=== PATIENT | female | born 1965 | race Caucasian/White ===

== ENCOUNTER → 2016-12-02 | Outpatient (CLI) | payer BC ==
[~2016-12-02] MED LIST: ATOR10TA88 PO; CZR25 PO; LEVO75TA5 PO; LOSA50TA6 PO; LPR25 PO; MULT-506 PO; OXYC-57 PO; SERT50TA PO
--- NOTE | 2016-12-02 12:46 | MAMMOGRAPHY REPORT ---
BILATERAL DIGITAL SCREENING MAMMOGRAM TOMOSYNTHESIS WITH CAD: 12/02/2016 CLINICAL HISTORY: Routine screening. Patient has no complaints. TECHNIQUE: Breast tomosynthesis in addition to standard 2D mammography was performed. Current study was also evaluated with a Computer Aided Detection (CAD) system. COMPARISON: Comparison is made to exams dated: 11/29/2015 mammogram, 11/27/2014 mammogram, 05/29/2013 mammogram, 11/23/2012 mammogram, 11/23/2013 mammogram, and 11/23/2012 ultrasound - [facility]. BREAST COMPOSITION: The tissue of both breasts is heterogeneously dense, which may obscure small ma sses. FINDINGS: No suspicious masses, calcifications, or areas of architectural distortion are noted in e ither breast. There has been no significant interval change compared to prior exams. IMPRESSION: ACR BI-RADS CATEGORY 1: NEGATIVE There is no mammographic evidence of malignancy. A 1 year screening mammogram is recommended. The p atient will receive written notification of the results. Approximately 10% of breast cancers are not detected with mammography. A negative mammographic repor t should not delay biopsy if a clinically suggestive mass is present. Linda Dinero M.D. ah/:12/02/2016 07:53:00 Pension Consultant: Stephy Newman, [facility] letter sent: Normal 1/2 BI-RADS Code: ACR BI-RADS Category 1: Negative
== END | disposition home or self-care (01) ==
LOC: C.MAMM 07:21
PROVIDERS: ATTEND Family Medicine
DX: Z12.31 Encounter for screening mammogram for malignant neoplasm of breast (principal)

== ENCOUNTER 2017-02-08 22:33 | Observation (INO) | payer BC ==
[~2017-02-08] VITALS: Ht 170.2 cm; Wt 120.9 kg
[~2017-02-08 22:33] MED LIST changes: -ATOR10TA88 PO; -CZR25 PO; -LEVO75TA5 PO; -LOSA50TA6 PO; -LPR25 PO
[2017-02-08 23:03] LABS: BASO % 0.3 %; BASO ABS # 0.02 K/uL (0-0.2); COMPLETE YES; EOS % 1.2 %; HEMATOCRIT 37.8 % (37-47); IG% 0.3 %; LYMPH % 41.8 %; LYMPH ABS # 2.51 K/uL (1.2-3.4); MEAN CELL VOLUME 92.6 fL (80-100); MEAN CORPUSCULAR HEMOGLOBIN 32.4 pg (25-34); MEAN CORPUSCULAR HGB CONC 34.9 g/dl (32-36); MEAN PLATELET VOLUME 9.4 fL (7.4-10.4); MONO % 5.5 %; NEUT % 50.9 %; PLATELET COUNT 168 K/uL (130-400); RED BLOOD COUNT 4.08 M/uL (4.2-5.4)
[2017-02-08] MEDS ORDERED: LORAZEPAM 2 MG/ML 1 ML VIAL IV STA (23:16)
[2017-02-08 23:30] LABS: ALT/SGPT 26 U/L (12-78); AST/SGOT 19 U/L (15-37); BLOOD UREA NITROGEN 20 mg/dl (7-18); BUN/CREATININE RATIO 11.7 (10-20); CALCIUM 9.1 mg/dl (8.5-10.1); CARBON DIOXIDE 29 mmol/L (21-32); CHLORIDE 104 mmol/L (98-107); GLUCOSE 98 mg/dl (70-99); MAGNESIUM 1.9 mg/dl (1.8-2.4); POTASSIUM 3.6 mmol/L (3.5-5.1); SODIUM 141 mmol/L (136-145)
[2017-02-08] MEDS ORDERED: MULT-506 PO (23:33)
[2017-02-08] MEDS ORDERED: ATOR10TA82 PO (23:33)
[2017-02-08] MEDS ORDERED: LEVO75TA5 PO (23:33)
[2017-02-08] MEDS ORDERED: LOSA50TA6 PO (23:33)
[2017-02-08 23:41] LABS: ALKALINE PHOSPHATASE 91 U/L (45-117)
[2017-02-08] MEDS ORDERED: SODIUM CHLORIDE 0.9% 500ML 500 ML IV STA (23:41)
--- NOTE | 2017-02-09 00:06 | History and Physical ---
History & Physical Date & Time of Service: Feb 09, 2017 at 00:04 Chief Complaint: Jaw/Neck Pain,Rt Arm Pain W/Numbness Primary Care Physician: Jean Narayan M.D. History of Present Illness Source: patient The patient is a 51 year old female who presents to the Emergency Room with complaints of nausea, shortness of breath, upper back, neck, bilateral shoulder and right arm discomfort with tingling for the past few hours. Patient reports left sided chest pain, appears to be anxious , C/O SOB , chest pain pain worse with laying flat. Similar experience on Wednesday, lasting 2 hours with resolution. Negative diaphoresis. She describes the pain as numbness and tingling, Patient has a family history of heart disease with a brother had a heart attack in his 30s and her mother and her diffuse. Patient donated a kidney few years ago. She had an cardiac catheterization in 2008 prior to donating her kidney that was normal per patient. Patient is obese. No complain of RAMIREZ . Patient denies fever , cough, congestion, leg pain or swelling, no complain of abdominal pain, no recent travel, denies tobacco use. Family History Cancer Diabetes mellitus FH: cholecystectomy Gallbladder disease Heart disease Social History Smoking Status: Never Smoker Marital Status: Occupational Status: employed Multi-Drug Resistant Organisms History of MDRO: No Allergies Uncoded Allergies: HORMONE REPLACEMENT (Allergy, Intermediate, HIVES AND BLISTERS, 04/09/14) Home Medications Scheduled Atorvastatin (Lipitor), 10 MG PO DAILY Levothyroxine Sodium (Levothyroxine Sodium), 75 MCG PO DAILY Losartan Potassium (Losartan Potassium), 1 TAB PO DAILY Metoprolol Tartrate (Lopressor), 25 MG PO BID Multivitamin (Multivitamin), 1 TAB PO DAILY Review of Systems Constitutional: + fatigue, + weakness Respiratory: + dyspnea on exertion Cardiovascular: + chest pain Abdomen: No GI bleeding, No constipation, No diarrhea, No nausea, No pain, No problem reported, No vomiting Musculoskeletal: No calf pain, No joint pain, No muscle pain, No problem reported, No swelling Genitourinary - Female: No dysmenorrhea, No dysuria, No hematuria, No menorrhagia, No metrorrhagia, No , No problem reported, No rash, No urinary frequency, No urinary incontinence, No urinary retention, No urinary urgency, No vaginal bleeding, No vaginal discharge, No vaginal itching, No vulvodynia Endocrine: No excessive thirst, No excessive urination, No fatigue, No problem reported Physical Exam Vital Signs Date Time Temp Pulse Resp B/P Pulse Ox O2 Delivery O2 Flow Rate FiO2 02/08/17 23:24 90 20 150/92 97 Room Air 02/08/17 23:03 98 Room Air 02/08/17 22:53 Room Air 02/08/17 22:53 99 Room Air 02/08/17 22:43 104 02/08/17 22:34 36.7 105 20 192/84 100 Room Air General Appearance: no apparent distress Head: normocephalic, atraumatic Eyes: sclerae normal Respiratory/Chest: lungs clear, normal breath sounds Cardiovascular: regular rate, rhythm, no edema Abdomen/GI: normal bowel sounds, non tender, soft Extremities/Musculoskelatal: normal capillary refill, no pedal edema Neurologic/Psych: no motor/sensory deficits, alert, normal mood/affect, oriented x 3 Skin: normal color, warm/dry, no rash Lymphatic: no adenopathy Diagnostics Laboratory Results Results Past 24 Hours Test 02/08/17 22:45 02/08/17 22:51 Range/Units White Blood Count 6.00 4.8-10.8 K/uL Red Blood Count 4.08 4.2-5.4 M/uL Hemoglobin 13.2 12.0-16.0 g/dL Hematocrit 37.8 37-47 % Mean Corpuscular Volume 92.6 80-100 fL Mean Corpuscular Hemoglobin 32.4 25-34 pg Mean Corpuscular Hemoglobin Concent 34.9 32-36 g/dl Platelet Count 168 130-400 K/uL Mean Platelet Volume 9.4 7.4-10.4 fL Neutrophils (%) (Auto) 50.9 % Lymphocytes (%) (Auto) 41.8 % Monocytes (%) (Auto) 5.5 % Eosinophils (%) (Auto) 1.2 % Basophils (%) (Auto) 0.3 % Neutrophils # (Auto) 3.05 1.4-6.5 K/uL Lymphocytes # (Auto) 2.51 1.2-3.4 K/uL Monocytes # (Auto) 0.33 0.11-0.59 K/uL Eosinophils # (Auto) 0.07 0-0.5 K/uL Basophils # (Auto) 0.02 0-0.2 K/uL RDW Standard Deviation 46.8 36.4-46.3 fL RDW Coefficient of Variation 13.9 11.5-14.5 % Immature Granulocyte % (Auto) 0.3 % Immature Granulocyte # (Auto) 0.02 0.00-0.02 K/uL D-Dimer 590 0-500 ug/L FEU Sodium Level 141 136-145 mmol/L Potassium Level 3.6 3.5-5.1 mmol/L Chloride Level 104 98-107 mmol/L Carbon Dioxide Level 29 21-32 mmol/L Anion Gap 8.0 3-11 mmol/L Blood Urea Nitrogen 20 7-18 mg/dl Creatinine 1.70 0.60-1.20 mg/dl Est Creatinine Clear Calc Drug Dose 53.6 ml/min Estimated GFR () 40.1 Estimated GFR (Non- 34.6 BUN/Creatinine Ratio 11.7 10-20 Random Glucose 98 70-99 mg/dl Calcium Level 9.1 8.5-10.1 mg/dl Magnesium Level 1.9 1.8-2.4 mg/dl Total Bilirubin 0.3 0.2-1 mg/dl Direct Bilirubin < 0.1 0-0.2 mg/dl Aspartate Amino Transf (AST/SGOT) 19 15-37 U/L Alanine Aminotransferase (ALT/SGPT) 26 12-78 U/L Alkaline Phosphatase 91 45-117 U/L Troponin I < 0.015 0-0.045 ng/ml Total Protein 7.9 6.4-8.2 gm/dl Albumin 3.9 3.4-5.0 gm/dl Thyroid Stimulating Hormone (TSH) 7.780 0.300-4.500 uIu/ml Bedside Troponin I 0.000 0-0.045 ng/ml CXR normal EKG EKG -normal sinus HR 85 possible inferior infraction , age indeterminant Impression Assessment and Plan (1) Anginal chest pain at rest Assessment & Plan: presented with typical anginal symptom pain radiation to jaw and arm risk factor; family hx of CAD , HTN , Hyperlipidemia initial cardiac markers , EKG non ischemic admit to tele serial cardiac markers Resting ECHO ordered Cardiology consult requested NPO past midnight for possible stress test vs Cardiac intervention in AM - depending on pt's clinical status (2) Hypothyroidism Chronic Assessment & Plan: TSH elevated > 7 ordered for Free T3/T 4 level Levothyroxine dose will be increased to 100 mcg daily will need repeat TSH to be checked in 4-6 weeks (3) DUSTY (acute kidney injury) Assessment & Plan: SOLITARY KIDNEY baseline cr presented with Cr 1.7 follow PRP avoid contrast studies , unless life threatening condition /life saving procedure IVF NSS @ 80 ml /hr baseline Cr (4) Hyperlipidemia Chronic Assessment & Plan: Cont Lipitor ordered for fasting lipid panel to be checked (5) HTN (hypertension) Assessment & Plan: BP elevated 192/84 pt was very anxious Losartan on hold due to DUSTY stated on Lopressor 25 mg PO BID , ist dose to be given now monitor in Tele ECHO to assess hypertensive heart disease Cardiology consulted (6) Elevated d-dimer D-DIMER ELEVATED 590 with associated symptom of SOB , chest pain , RAMIREZ CT chest with contrast PE study could not be done due to DUSTY ordered for lower ext bilateral venous Doppler to R/O DVT ECHO to assess Rt heart strain Level of Care Telemetry Resuscitation Status FULL RESUSCITATION VTE Prophylaxis Risk Level: Moderate Given or contraindicated: Unfractionated heparin SQ Note In my clinical judgment this beneficiary meets acute admission criteria, established by [facility], that includes being hospitalized through two midnights. Additional Copies To Jean Narayan M.D. Problem Qualifiers (1) Hypothyroidism: Hypothyroidism type: unspecified Qualified Codes: E03.9 - Hypothyroidism, unspecified (2) Hyperlipidemia: Hyperlipidemia type: other hyperlipidemia Qualified Codes: E78.4 - Other hyperlipidemia (3) HTN (hypertension): Hypertension type: essential hypertension Qualified Codes: I10 - Essential ( primary) hypertension
--- NOTE | 2017-02-09 00:18 | EMERGENCY ROOM VISIT NOTE ---
History First contact with patient: 22:38 Chief Complaint: CARDIAC ASSESSMENT Stated Complaint: JAW/NECK PAIN,RT ARM PAIN W/NUMBNESS Nursing Triage Summary: Patient reports left sided chest pain, arrives anxious. ? SOB. Negative nausea/vomiting, pain worse iwth laying flat. Similar experience on Wednesday, lasting 2 hours with resolution. Negative diaphoresis. History of Present Illness The patient is a 51 year old female who presents to the Emergency Room with complaints of nausea, shortness of breath, upper back, neck, bilateral shoulder and right arm discomfort with tingling for the past few hours. She describes the pain as numbness and tingling, makes it better or worse. Patient has a family history of heart disease with a brother had a heart attack in his 30s and her mother and her diffuse. Patient donated a kidney few years ago. She had an cardiac catheterization in 2008 prior to donating her kidney that was normal per patient. Patient is obese. She does not get winded when she walks. No exertional chest pain. Patient denies chest pain, even, chills, cough, congestion, leg pain or swelling, abdominal pain, recent travel, tobacco use. Review of Systems See HPI for pertinent positives & negatives. A total of 10 systems reviewed and were otherwise negative. Past Medical/Surgical History Medical Problems: (1) DUSTY (acute kidney injury) (2) Hypothyroidism Hypertension, hyperlipidemia Family History Cancer Diabetes mellitus FH: cholecystectomy Gallbladder disease Heart disease Social History Smoking Status: Never Smoker Smokeless Tobacco Use: No Alcohol Use: none Drug Use: none Marital Status: Housing Status: lives with significant other Occupation Status: employed Current/Historical Medications Scheduled Atorvastatin (Lipitor), 10 MG PO DAILY Levothyroxine Sodium (Levothyroxine Sodium), 75 MCG PO DAILY Losartan Potassium (Cozaar), 50 MG PO DAILY Multivitamin (Multivitamin), 1 TAB PO DAILY Allergies Uncoded Allergies: HORMONE REPLACEMENT (Allergy, Intermediate, HIVES AND BLISTERS, 04/09/14) Physical Exam Vital Signs Date Time Temp Pulse Resp B/P Pulse Ox O2 Delivery O2 Flow Rate FiO2 02/08/17 23:24 90 20 150/92 97 Room Air 02/08/17 23:03 98 Room Air 02/08/17 22:53 Room Air 02/08/17 22:53 99 Room Air 02/08/17 22:43 104 02/08/17 22:34 36.7 105 20 192/84 100 Room Air Physical Exam VITALS: Vitals are noted on the nurse's note and reviewed by myself. Vital signs hypertensive. GENERAL: Pleasant female mildly anxious-appearing, in no acute distress, nondiaphoretic, well-developed well-nourished. SKIN: The skin was without rashes, erythema, edema, or bruising. There is no tenting of the skin. Capillary reflex less than 2 seconds. HEAD: Normocephalic atraumatic. EARS: External auditory canals clear, tympanic membranes pearly aragon without erythema or effusion bilaterally. EYES: Pupils equal round and reactive to light and accommodation. Conjunctivae without injection, sclerae without icterus. Extraocular movements intact. NOSE: Patent, turbinates without inflammation or discharge. MOUTH: Mucous membranes moist. Pharynx without erythema or exudate. Uvula midline. Airway patent. Tongue does not deviate. NECK: Supple without nuchal rigidity. No lymphadenopathy. No thyromegaly. Cervical spine is nontender. No JVD. HEART: Regular rate and rhythm without murmurs gallops or rubs. LUNGS: Clear to auscultation bilaterally without wheezes, rales or rhonchi. No dullness to percussion. No retractions or accessory muscle use. ABDOMEN: Positive bowel sounds x 4. Normal tympanic percussion. Soft, nontender, without masses or organomegaly. Martin sign negative. No guarding or rebound tenderness. MUSCULOSKELETAL: No muscle atrophy, erythema, or edema noted. NEURO: Patient was alert and oriented to person place and time. Normal sensation to light and sharp touch. No focal neurological deficits. Medical Decision & Procedures Laboratory Results 02/08/17 22:45 Red Blood Count 4.08, Mean Corpuscular Volume 92.6, Mean Corpuscular Hemoglobin 32.4, Mean Corpuscular Hemoglobin Concent 34.9, Mean Platelet Volume 9.4, Neutrophils (%) (Auto) 50.9, Lymphocytes (%) (Auto) 41.8, Monocytes (%) (Auto) 5.5, Eosinophils (%) (Auto) 1.2, Basophils (%) (Auto) 0.3, Neutrophils # (Auto) 3.05, Lymphocytes # (Auto) 2.51, Monocytes # (Auto) 0.33, Eosinophils # (Auto) 0.07, Basophils # (Auto) 0.02 02/08/17 22:45 Test 02/08/17 22:45 02/08/17 22:51 White Blood Count 6.00 K/uL (4.8-10.8) Red Blood Count 4.08 M/uL (4.2-5.4) Hemoglobin 13.2 g/dL (12.0-16.0) Hematocrit 37.8 % (37-47) Mean Corpuscular Volume 92.6 fL (80-100) Mean Corpuscular Hemoglobin 32.4 pg (25-34) Mean Corpuscular Hemoglobin Concent 34.9 g/dl (32-36) Platelet Count 168 K/uL (130-400) Mean Platelet Volume 9.4 fL (7.4-10.4) Neutrophils (%) (Auto) 50.9 % Lymphocytes (%) (Auto) 41.8 % Monocytes (%) (Auto) 5.5 % Eosinophils (%) (Auto) 1.2 % Basophils (%) (Auto) 0.3 % Neutrophils # (Auto) 3.05 K/uL (1.4-6.5) Lymphocytes # (Auto) 2.51 K/uL (1.2-3.4) Monocytes # (Auto) 0.33 K/uL (0.11-0.59) Eosinophils # (Auto) 0.07 K/uL (0-0.5) Basophils # (Auto) 0.02 K/uL (0-0.2) RDW Standard Deviation 46.8 fL (36.4-46.3) RDW Coefficient of Variation 13.9 % (11.5-14.5) Immature Granulocyte % (Auto) 0.3 % Immature Granulocyte # (Auto) 0.02 K/uL (0.00-0.02) D-Dimer 590 ug/L FEU (0-500) Anion Gap 8.0 mmol/L (3-11) Est Creatinine Clear Calc Drug Dose 53.6 ml/min Estimated GFR () 40.1 Estimated GFR (Non- 34.6 BUN/Creatinine Ratio 11.7 (10-20) Calcium Level 9.1 mg/dl (8.5-10.1) Magnesium Level 1.9 mg/dl (1.8-2.4) Total Bilirubin 0.3 mg/dl (0.2-1) Direct Bilirubin < 0.1 mg/dl (0-0.2) Aspartate Amino Transf (AST/SGOT) 19 U/L (15-37) Alanine Aminotransferase (ALT/SGPT) 26 U/L (12-78) Alkaline Phosphatase 91 U/L (45-117) Troponin I < 0.015 ng/ml (0-0.045) Total Protein 7.9 gm/dl (6.4-8.2) Albumin 3.9 gm/dl (3.4-5.0) Thyroid Stimulating Hormone (TSH) 7.780 uIu/ml (0.300-4.500) Bedside Troponin I 0.000 ng/ml (0-0.045) Medications Administered Medications (Trade) Dose Ordered Sig/Darlin Route Start Time Stop Time Status Last Admin Dose Admin Lorazepam 0.5 mg 0.5 mg NOW STAT IV 02/08/17 23:16 02/08/17 23:17 DC 02/08/17 23:22 0.5 MG Sodium Chloride (Nss 500ml) 500 ml @ 999 mls/hr Q31M STAT IV 02/08/17 23:41 02/09/17 00:11 02/08/17 23:41 999 MLS/HR ED Course Prior records/ancillary studies reviewed. Triage Nursing notes reviewed. Additional history obtained from family The patient's history was concerning for dyspnea, nausea, bilateral shoulder tingling with right arm tingling and neck discomfort. Differential diagnosis: Etiologies such as cardiac ischemia, thyroid disorder, left slight amounts, anxiety, aortic dissection, pulmonary embolism, pneumonia, pneumothorax, musculoskeletal, infections, pericarditis, myocarditis, esophageal rupture, gastrointestinal, as well as others were entertained. Physical examination: As above. ER treatment provided: IV fluids On reassessment the patient felt better. Diagnostic interpretation by me: The electrocardiogram was negative for pathologic change. Normal sinus, occasional PVC, no acute ST-T wave changes, rate of 109. Impression sinus tachycardia with occasional PVCs interpreted by myself The labs revealed elevated d-dimer. Elevated creatinine. Negative troponin. Creatinine is higher than baseline per patient Imaging studies: Chest x-ray with no acute consolidation, pneumothorax or free air per my interpretation Consultation: A consultation was placed with the hospitalist, Dr. Barcenas. The case was discussed and diagnostics were reviewed. The patient was evaluated in the ER for further treatment. Exam and history seem consistent with elevated d-dimer, dyspnea, anginal equivalent. Patient will be evaluated by medicine for possible admission. Her creatinine is elevated and To CT for rule out PE. She will be evaluated for admission for rule out PE for a VQ scan in the morning. Patient has multiple risk factors for heart disease. She has had blood pressure, cholesterol and she is obese and has a family history. Negative troponin. No acute findings on EKG. By the evaluation outlined above emergent etiologies such as aortic dissection , pneumonia, pneumothorax, infections, pericarditis, myocarditis, gastrointestinal, as well as others were deemed relatively unlikely. The pt informed about the findings as listed above. All questions were answered and pleased with the treatment. case reviewed with my Attending. Medical Decision As above Impression Primary Impression: Dyspnea Additional Impressions: Elevated d-dimer Tingling of right upper extremity Departure Information Dispostion Being Evaluated By Hospitalist Condition FAIR Referrals Jean Narayan M.D. (PCP) Patient Instructions My [facility] Problem Qualifiers Primary Impression: Dyspnea Dyspnea type: shortness of breath Qualified Codes: R06.02 - Shortness of breath
[2017-02-09] MEDS ORDERED: ASPIRIN 81 MG ECTAB PO STA (00:19)
[2017-02-09] MEDS ORDERED: METOPROLOL TARTRATE 50 MG TAB PO STA (00:23)
[2017-02-09 00:27] LABS: INR 0.9 (0.9-1.1)
[2017-02-09] MEDS ORDERED: ACETAMINOPHEN 325 MG TAB PO PRN (00:30)
[2017-02-09] MEDS ORDERED: POLYETHYLENE (MIRALAX) 17 GM PACK PO PRN (00:30)
[2017-02-09] MEDS ORDERED: ONDANSETRON INJ 2 MG/ML 2 ML VIAL IV PRN (00:30)
[2017-02-09] MEDS ORDERED: NITROGLYCERIN 0.4 MG SL PER TAB CHARGE SL PRN (00:30)
[2017-02-09] MEDS ORDERED: ALUMINUM/MAGNESIUM/SIMETH (MAALOX MAX) 30 ML UDC PO PRN (00:30)
[2017-02-09] MEDS ORDERED: LORAZEPAM 0.5 MG TAB PO PRN (00:30)
[2017-02-09] MEDS ORDERED: ZOLPIDEM TARTRATE 5 MG TAB PO PRN (00:30)
[2017-02-09] MEDS ORDERED: MAGNESIUM HYDROXIDE SUSP 30 ML UDC PO PRN (00:30)
[2017-02-09] MEDS ORDERED: IV FLUIDS COMPLETED PRN (01:30)
[2017-02-09] MEDS ORDERED: HEPARIN SOD (PORCINE) 1000 UNIT/ML 10 ML VIAL IV STA (02:48)
[2017-02-09] MEDS ORDERED: HEPARIN 25,000 UNIT/500ML D5W 500 ML IV PRN (03:00)
[2017-02-09 03:45] VITALS: BP 145/76; PULSE 78; TEMP 37; O2SAT 98; Ht 170.2 cm; Wt 120.9 kg
[2017-02-09] MEDS ORDERED: SODIUM CHLORIDE 0.9% 1000ML 1,000 ML IV SCH (04:00)
[2017-02-09 04:46] LABS: URINE APPEARANCE CLEAR (CLEAR); URINE BILIRUBIN NEG (NEG); URINE COLOR YELLOW; URINE NITRITE NEG (NEG); URINE SPECIFIC GRAVITY 1.012 (1.000-1.030); UROBILINOGEN NEG (NEG); ZZUR CULT IF INDIC CLEAN CATCH NO
[2017-02-09 04:47] LABS: MANUAL MICROSCOPIC REQUIRED? NO; REVIEW REQ? NO
[2017-02-09] MEDS ORDERED: LEVOTHYROXINE 100 MCG TAB PO SCH (06:00)
[2017-02-09] MEDS ORDERED: HEPARIN SOD 5000 UNIT/0.5 ML CARP SQ SCH (06:00)
[2017-02-09 06:51] LABS: BLOOD UREA NITROGEN 17 mg/dl (7-18); BUN/CREATININE RATIO 11.9 (10-20); CALCIUM 8.6 mg/dl (8.5-10.1); CARBON DIOXIDE 28 mmol/L (21-32); CHLORIDE 110 mmol/L (98-107); CHOLESTEROL 152 mg/dl (0-200); CHOLESTEROL/HDL RATIO 3.2; GLUCOSE 110 mg/dl (70-99); HDL CHOLESTEROL 47 mg/dl; LDL CHOLESTEROL CALCULATED 76 mg/dl; POTASSIUM 4.1 mmol/L (3.5-5.1); SODIUM 145 mmol/L (136-145); TRIGLYCERIDES 144 mg/dl (0-150); VERY LOW DENSITY LIPOPROT CALC 29 mg/dl
--- NOTE | 2017-02-09 07:04 | DIAGNOSTIC IMAGING REPORT ---
ULTRASOUND BILATERAL LOWER EXTREMITY VENOUS CLINICAL HISTORY: Dyspnea. Elevated d-dimer. COMPARISON STUDY: No priors. TECHNIQUE: Real-time, grayscale, and color Doppler sonography of the deep veins of the right and left lower extremity was performed from the inguinal crease to the calf. Compression and augmentation were utilized. FINDINGS: There is no sonographic evidence of deep venous thrombosis identified in the right or left lower extremity. The common femoral, superficial femoral, and popliteal veins are patent and normally compressible bilaterally. The greater saphenous vein and the profunda femoris vein at the junction with the common femoral vein are clear in both legs. The visualized calf veins are patent bilaterally. IMPRESSION: There is no sonographic evidence of deep venous thrombosis identified in the right or left lower extremity. Electronically signed by: Nacho Ann M.D. 02/09/2017 7:02 AM Dictated Date/Time: 02/09/2017 7:02 AM
--- NOTE | 2017-02-09 07:31 | DIAGNOSTIC IMAGING REPORT ---
SINGLE VIEW CHEST CLINICAL HISTORY: Atypical chest pain. FINDINGS: An AP, portable, upright chest radiograph is compared to study dated 08/16/2014. The examination is degraded by portable technique, large body habitus, apical lordotic positioning, and patient rotation. The cardiomediastinal silhouette is top normal for projection. The lungs and pleural spaces are clear. No pneumothorax is seen. The bony thorax is grossly intact. Surgical clips are noted in the upper abdomen. IMPRESSION: No acute cardiopulmonary abnormality. Electronically signed by: Nacho Ann M.D. 02/09/2017 7:29 AM Dictated Date/Time: 02/09/2017 7:28 AM
[2017-02-09 08:00] VITALS: BP 134/78; PULSE 66; TEMP 36.7; O2SAT 96
--- NOTE | 2017-02-09 08:41 | ECHOCARDIOGRAM REPORT ---
*NOTICE TO RECEIVING [employer] This information is strictly Confidential and protected under [place] law. [place] law prohibits you from making any further disclosure of this information unless further disclosure is expressly permitted by the written consent of the person to whom it pertains or is authorized by law. A general authorization for the release of medical or other information is not sufficient for this purpose. Hospital accepts no responsibility if the information is made available to any other person, INCLUDING THE PATIENT. Interpretation Summary * Name: KARISSA BEAULIEU Study Date: 02/09/2017 06:58 AM BP: 145/76 mmHg * [facility] HR: 78 * : 1965 (M/d/yyyy) Gender: Female Height: 67 in * Age: 51 yrs Ethnicity: CA Weight: 268 lb * Ordering Physician: Fide Barcenas * Performed By: Elsie Jon RDCS * * Reason For Study: Chest pain * BSA: 2.3 m2 * -- Conclusions -- * The left ventricle is normal in size. * There is normal left ventricular wall thickness. * No regional wall motion abnormalities noted. * Left ventricular systolic function is normal. * Ejection Fraction = 60-65%. Procedure Details * A complete two-dimensional transthoracic echocardiogram was performed (2D, M-mode, Doppler and color flow Doppler). * The study was technically limited. * There were technical limitations due to patient'sbody habitus Left Ventricle * The left ventricle is normal in size. * There is normal left ventricular wall thickness. * Ejection Fraction = 60-65%. * Left ventricular systolic function is normal. * No regional wall motion abnormalities noted. Right Ventricle * The right ventricle is normal in size and function. Atria * The left atrial size is normal. * Right atrial size is normal. * No ASD detected; PFO is not assessed. Mitral Valve * The mitral valve is grossly normal. * There is no mitral valve stenosis. * There is trace mitral regurgitation. Tricuspid Valve * The tricuspid valve is normal. * There is no tricuspid stenosis. * There is trace tricuspid regurgitation. Aortic Valve * The aortic valve is trileaflet. * No hemodynamically significant valvular aortic stenosis. * No aortic regurgitation is present. Pulmonic Valve * The pulmonic valve is not well visualized. Great Vessels * The aortic root is normal size. Pericardium/Pleural * There is no pericardial effusion. Great Vessels * Normal inferior vena cava diameter and respiratory variation suggests normal central venous pressure. MMode 2D Measurements and Calculations IVSd 0.99 cm LVIDd 4.7 cm LVIDs 3.1 cm LVPWd 1.3 cm IVS/LVPW 0.76 FS 33.8 % EDV(Teich) 101.7 ml ESV(Teich) 38.1 ml EF(Teich) 62.6 % EDV(cubed) 103.0 ml ESV(cubed) 29.9 ml EF(cubed) 70.9 % LV mass(C)d 197.6 grams LV mass(C)dI 86.3 grams/m\S\2 SV(Teich) 63.6 ml SI(Teich) 27.8 ml/m\S\2 SV(cubed) 73.0 ml SI(cubed) 31.9 ml/m\S\2 Ao root diam 3.2 cm Ao root area 7.8 cm\S\2 ACS 1.9 cm LA dimension 3.3 cm asc Aorta Diam 3.2 cm LA/Ao 1.1 LVOT diam 2.0 cm LVOT area 3.2 cm\S\2 LVAd ap4 23.5 cm\S\2 LVLd ap4 7.3 cm EDV(MOD-sp4) 64.1 ml EDV(sp4-el) 64.3 ml LVAs ap4 12.8 cm\S\2 LVLs ap4 5.9 cm ESV(MOD-sp4) 23.2 ml ESV(sp4-el) 23.7 ml EF(MOD-sp4) 63.8 % EF(sp4-el) 63.2 % LVAd ap2 16.4 cm\S\2 LVLd ap2 6.7 cm EDV(MOD-sp2) 33.9 ml EDV(sp2-el) 34.4 ml LVAs ap2 9.9 cm\S\2 LVLs ap2 6.1 cm ESV(MOD-sp2) 13.3 ml ESV(sp2-el) 13.5 ml EF(MOD-sp2) 60.7 % EF(sp2-el) 60.7 % LVLd %diff -9.94 % EDV(MOD-bp) 49.0 ml LVLs %diff 2.6 % ESV(MOD-bp) 18.1 ml EF(MOD-bp) 63.1 % SV(MOD-sp4) 40.9 ml SI(MOD-sp4) 17.9 ml/m\S\2 SV(MOD-sp2) 20.6 ml SI(MOD-sp2) 9.0 ml/m\S\2 SV(MOD-bp) 30.9 ml SI(MOD-bp) 13.5 ml/m\S\2 SV(sp4-el) 40.7 ml SI(sp4-el) 17.8 ml/m\S\2 SV(sp2-el) 20.9 ml SI(sp2-el) 9.1 ml/m\S\2 Doppler Measurements and Calculations MV E max chichi 88.8 cm/sec MV A max chichi 106.2 cm/sec MV E/A 0.84 MV dec time 0.21 sec Ao V2 max 132.7 cm/sec Ao max PG 7.0 mmHg Ao max PG (full) 2.2 mmHg JON(V,A) 2.6 cm\S\2 JON(V,D) 2.6 cm\S\2 LV V1 max PG 4.8 mmHg LV V1 max 109.6 cm/sec PA V2 max 81.4 cm/sec PA max PG 2.7 mmHg PA acc slope 619.9 cm/sec\S\2 PA acc time 0.10 sec TR max chichi 115.2 cm/sec PA pr(Accel) 34.6 mmHg
[2017-02-09] MEDS ORDERED: LEVOTHYROXINE 75 MCG TAB PO SCH (09:00)
[2017-02-09] MEDS ORDERED: ASPIRIN 81 MG ECTAB PO SCH (09:00)
[2017-02-09] MEDS ORDERED: METOPROLOL TARTRATE 25 MG TAB PO SCH (09:00)
[2017-02-09] MEDS ORDERED: ATORVASTATIN 10 MG TAB PO SCH (09:00)
[2017-02-09] MEDS ORDERED: MULTIVITAMIN TAB PO SCH (09:00)
[2017-02-09 12:00] VITALS: BP 138/92; PULSE 67; TEMP 36.7; O2SAT 95; O2SAT 96
[2017-02-09] MEDS ORDERED: PERFLUTREN LIPID MICROSPHERE (DEFINITY) IV ONE (14:29)
--- NOTE | 2017-02-09 16:17 | EXERCISE STRESS ECHO ---
*NOTICE TO RECEIVING DEMOCRAT AGENCY This information is strictly Confidential and protected under [place] law. [place] law prohibits you from making any further disclosure of this information unless further disclosure is expressly permitted by the written consent of the person to whom it pertains or is authorized by law. A general authorization for the release of medical or other information is not sufficient for this purpose. Hospital accepts no responsibility if the information is made available to any other person, INCLUDING THE PATIENT. Interpretation Summary * Name: KARISSA BEAULIEU Study Date: 02/09/2017 01:18 PM BP: 135/79 mmHg * Patient Location: .[facility]\S\E103\S\1 HR: 74 * : 1965 (M/d/yyyy) Gender: Female Height: 67 in * Age: 51 yrs Ethnicity: CA Weight: 266 lb * Ordering Physician: Mark Heath * Referring Physician: Self, Referred * Performed By: Love Ugarte RCS * * Reason For Study: Chest Pain * BSA: 2.3 m2 * The stress echocardiogram is negative for inducible ischemia. * _ workload achieved. * Normal resting wall motion and no stress-induced wall motion abnormality. Procedure Details * ECHOEX, CPT #38643 * A contrast injection of Definity was performed to improve assessment of LV function. * Contrast was injected into an intravenous site in the left arm. * One vial of Definity ultrasound contrast was diluted in normal saline to a total volume of 10 ml. A total of '4' ml of solution was administered during imaging. * Lot # [id number] of Definity utilized for procedure. * Expiration date . * The attending nurse who injected the contrast agent was Raphael PANDEY RN. Left Ventricle * The left ventricle is normal in size. * There is normal left ventricular wall thickness. * Left ventricular systolic function is normal. * Ejection Fraction = 60-65%. * Resting wall motion: Normal. Stress wall motion: Appropriate increase in Left ventricular systolic function and decrease in cavity size. No stress induced segmental wall motion abnormalities. Stress Parameters * The baseline ECG displays normal sinus rhythm. * Baseline rhythm is sinus with occasionla PVCs * Stress ECG: No ST changes. Isolated premature ventricular contractions were present. * The stress portion of this study was personally supervised by the undersigned interpreting physician. * Rest heart rate was '74' BPM. * Rest blood pressure was '135/79' * Maximum heart rate achieved was 155 bpm. * Maximum heart rate was 91 % of maximum age-predicted heart rate. * Maximum blood pressure was '201/69' * Total exercise time was '5:31' * Maximum exercise MET level achieved was '7.0' METS * Maximum treadmill speed was '2.5' miles per hour. * Maximum treadmill elevation was '12'% grade. * Exercise was terminated due to 'target heart rate achieved'
--- NOTE | 2017-02-09 16:45 | CARDIOLOGY CONSULTATION ---
DATE OF CONSULTATION: 02/09/2017 REFERRING PHYSICIAN: Fide Barcenas MD PRIMARY CARE PHYSICIAN: Jean Narayan MD INDICATIONS: Shortness of breath, chest discomfort, neck pain. HISTORY OF PRESENT ILLNESS: The patient is a 51-year-old female without prior history of documented cardiac disease. Her underlying medical problems include hypothyroidism, hypertension and hyperlipidemia on therapy. The patient presents this admission noting 2 episodes of symptoms, first on Wednesday where she experienced sharp pain in the neck radiating to both arms and wrists with associated shortness of breath. Symptoms lasted 2 hours then resolved. She noted no nausea or diaphoresis. Once again had a second episode evening of admission, describing as upper back and neck pain, sharp jaw pain radiating into both shoulders and down both arms, right greater than left with tingling in hands. Once again it was persistent and patient presented to the Emergency Room for further evaluation. She denies fevers, chills or recent illness. Notes no injury. Notes no cough, hoarseness, wheeze or hemoptysis. Notes no melena, hematochezia, dysuria or hematuria. Notes no rash or arthritic complaint. Weight is up approximately 25 pounds. Blood pressure has been running slightly on the high side, has been taking medications as prescribed. Notes no history of rheumatic fever, scarlet fever, renal or hepatic disease. The patient is status post single kidney donation. FAMILY HISTORY: Positive for coronary artery disease. ALLERGIES: NOTED TO BE PENICILLIN AND DIFFICULTIES WITH PRIOR HORMONAL REPLACEMENTS. MEDICATIONS PRIOR TO HOSPITALIZATION: Atorvastatin 10 mg per day, levothyroxine 75 mcg per day, losartan 50 mg p.o. q. day, multivitamin 1 tablet p.o. q. day. PAST SURGICAL HISTORY: Notable for prior cholecystectomy, hysterectomy, and as noted prior nephrectomy for donor transplant. FAMILY HISTORY: Notable for mother with [place] in her 60s. Father with a history of stroke. One brother had significant heart disease at a young age. SOCIAL HISTORY: The patient resides in [place]. 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 She is a nonsmoker. Very rare alcohol user. She is attempting to begin exercise and weight loss recently. Notes some stress at work. OBJECTIVE: VITAL SIGNS: Heart rate is 78, blood pressure is 145/76, blood pressure on initial presentation was elevated at 160/100, O2 saturations have been 98% to 100% on room air. HEENT: Normocephalic, atraumatic. NECK: Thick. There is no distinct jugular venous distention. There are no carotid bruits. LUNGS: Clear to auscultation. CARDIOVASCULAR: Regular with normal S1, S2. No audible murmur, gallop or rub. ABDOMEN: Obese, soft, nontender. There is no palpable hepatosplenomegaly. There is no hepatojugular reflux. EXTREMITIES: Without cyanosis or clubbing. There is no peripheral edema. There are intact distal pulses at 2/4, dorsalis pedis and posterior tibialis. NEUROLOGIC: The patient is alert, answering questions appropriately. DIAGNOSTIC DATA: EKG on presentation revealed sinus rhythm and sinus tachycardia with atrial ectopy, nonspecific ST segment changes, isolated Q-wave lead 3. Repeat EKG today demonstrates sinus rhythm with occasional ventricular ectopic beats. Borderline criteria for inferior infarct are no longer present. Echocardiogram today demonstrates normal left ventricular size, thickness and function, no significant valvular disease. LABORATORY STUDIES: Sodium is 145, potassium is 4.1, chloride is 110, bicarbonate is 28, BUN 17, creatinine is 1.4, CK and MB fractions were normal as were troponins on serial testing x2. Cholesterol was 152 with an LDL of 76 and HDL of 47. Chest x-ray reveals no infiltrate or edema. IMPRESSION: A 51-year-old female presenting with symptoms of sharp neck and back pain radiating down both shoulders and arms with associated marked shortness of breath on 2 separate occasions. Initial cardiac enzymes and EKGs do not suggest acute ischemia or injury. Echocardiogram demonstrates preserved LV function. Findings are notable for hypertension since admission. RECOMMENDATIONS: The patient will be referred for stress echocardiography to further delineate cardiac risk for intermediate risk and atypical, but concerning symptoms. ADDENDUM: STRESS ECHOCARDIOGRAPHY: The patient today was referred and underwent stress echocardiography exercising for 5 minutes and 30 seconds on a Jose protocol, achieving estimated MET level of 7 METs while reaching 90% age predicted maximum heart rate. There were no cardiac symptoms elicited. Test was stopped secondary to leg fatigue. There were no stress induced EKG abnormalities to suggest ischemia. Rest and stress LV function was normal. There was occasional ventricular ectopy in the recovery phase. Study is negative for stress induced ischemia. RECOMMENDATIONS: We would continue risk factor modification including lipid reduction, hypertension control with patient possibly needing further increase in antihypertensive regimen. We would consider adding low dose calcium channel gordon to regimen, continuing current dosing of losartan.
--- NOTE | 2017-02-09 16:54 | Progress Note ---
Medicine Progress Note Date & Time of Visit: Feb 09, 2017 at 16:53. Subjective seen resting in bed, comfortable significant other at bedside states she feels significantly better back to baseline denies any chest pain, dyspnea, dizziness, palpitations, dizziness ambulated in the halls with no problems at all states she is ready and would like to be discharge today denies other symptoms Objective Last 8 Hrs Date Time Temp Pulse Resp B/P Pulse Ox O2 Delivery O2 Flow Rate FiO2 02/09/17 12:00 36.7 67 16 138/92 96 Room Air 02/09/17 12:00 95 Room Air Physical Exam: General- oriented x 3 not in distress Head- atraumatic Eyes- EOMI, anicteric Neck- supple, no JVD no tenderness Lungs- clear to auscultation bilaterally Heart- normal rate, regular rhythm; no murmurs Abdomen- normal bowel sounds, soft, nontender Extremities- no pretibial edema, no calf tenderness Neuro- alert, oriented x 3 no gross focal deficits Skin- warm & dry Laboratory Results: Last 24 Hours Test 02/08/17 22:45 02/08/17 22:51 02/09/17 04:35 02/09/17 06:15 White Blood Count 6.00 K/uL Red Blood Count 4.08 M/uL Hemoglobin 13.2 g/dL Hematocrit 37.8 % Mean Corpuscular Volume 92.6 fL Mean Corpuscular Hemoglobin 32.4 pg Mean Corpuscular Hemoglobin Concent 34.9 g/dl Platelet Count 168 K/uL Mean Platelet Volume 9.4 fL Neutrophils (%) (Auto) 50.9 % Lymphocytes (%) (Auto) 41.8 % Monocytes (%) (Auto) 5.5 % Eosinophils (%) (Auto) 1.2 % Basophils (%) (Auto) 0.3 % Neutrophils # (Auto) 3.05 K/uL Lymphocytes # (Auto) 2.51 K/uL Monocytes # (Auto) 0.33 K/uL Eosinophils # (Auto) 0.07 K/uL Basophils # (Auto) 0.02 K/uL RDW Standard Deviation 46.8 fL RDW Coefficient of Variation 13.9 % Immature Granulocyte % (Auto) 0.3 % Immature Granulocyte # (Auto) 0.02 K/uL Prothrombin Time 10.0 SECONDS Prothromb Time International Ratio 0.9 D-Dimer 590 ug/L FEU Sodium Level 141 mmol/L 145 mmol/L Potassium Level 3.6 mmol/L 4.1 mmol/L Chloride Level 104 mmol/L 110 mmol/L Carbon Dioxide Level 29 mmol/L 28 mmol/L Anion Gap 8.0 mmol/L 7.0 mmol/L Blood Urea Nitrogen 20 mg/dl 17 mg/dl Creatinine 1.70 mg/dl 1.40 mg/dl Est Creatinine Clear Calc Drug Dose 53.6 ml/min 64.8 ml/min Estimated GFR () 40.1 50.6 Estimated GFR (Non- 34.6 43.7 BUN/Creatinine Ratio 11.7 11.9 Random Glucose 98 mg/dl 110 mg/dl Calcium Level 9.1 mg/dl 8.6 mg/dl Magnesium Level 1.9 mg/dl Total Bilirubin 0.3 mg/dl Direct Bilirubin < 0.1 mg/dl Aspartate Amino Transf (AST/SGOT) 19 U/L Alanine Aminotransferase (ALT/SGPT) 26 U/L Alkaline Phosphatase 91 U/L Troponin I < 0.015 ng/ml < 0.015 ng/ml Total Protein 7.9 gm/dl Albumin 3.9 gm/dl Thyroid Stimulating Hormone (TSH) 7.780 uIu/ml Free Thyroxine 1.03 ng/dl Free Triiodothyronine 3.00 pg/ml 2.82 pg/ml Bedside Troponin I 0.000 ng/ml Urine Color YELLOW Urine Appearance CLEAR Urine pH 6.0 Urine Specific [facility] 1.012 Urine Protein NEG Urine Glucose (UA) NEG Urine Ketones NEG Urine Occult Blood NEG Urine Nitrite NEG Urine Bilirubin NEG Urine Urobilinogen NEG Urine Leukocyte Esterase NEG Total Creatine Kinase 58 U/L Creatine Kinase MB < 0.5 ng/ml Creatine Kinase MB Ratio Triglycerides Level 144 mg/dl Cholesterol Level 152 mg/dl HDL Cholesterol 47 mg/dl LDL Cholesterol, Calculated 76 mg/dl VLDL Cholesterol, Calculated 29 mg/dl Cholesterol/HDL Ratio 3.2 Test 02/09/17 09:37 02/09/17 14:16 Activated Partial Thromboplast Time 103.9 SECONDS Partial Thromboplastin Ratio 4.0 Creatine Kinase MB Ratio Assessment & Plan 51 year old female with history of Hypertension, Dyslipidemia presenting with chest pain. (1) Atypical Chest Pain - from Hypertensive Urgency? pain radiation to jaw and arm risk factor; family hx of CAD , HTN , Hyperlipidemia - per patient, chest discomfort occurs when she is having posterior cervical neck pain radiating to the right arm -cardiac markers , EKG non ischemic s/p Exercise Stress Test by Dr. Heath: Negative cleared for discharged by Cardiology continue Metoprolol for better BP control chest pain has resolved at this time may need further work up for Cervicalgia (2) Hypothyroidism Chronic TSH elevated > 7 , T4 1.0 - repeat TSH/T4 in 1 week - continue L thyroxine (3) DUSTY (acute kidney injury) Resolved SOLITARY KIDNEY baseline cr 1.5 presented with Cr 1.7 given IV fluids, crea now 1.5 monitor (4) Hyperlipidemia Chronic LDL 76 HDL 47 Cont Lipitor (5) HTN (hypertension) BP elevated 192/84 on admission Losartan on hold due to DUSTY stated on Lopressor 25 mg PO BID BP improved to systolic 130s - continue Lopressor 25mg BID and lower Losartan to 25mg po daily for now monitor BP (6) Elevated d-dimer d dimer mildly elevated at 590 (normal <500) - Doppler of the Legs negative for DVT - Well's score for PE is Low no tachycardia, hypoxia, history of DVT - also, dyspnea and chest pain has resolved - has CKD, CT angio avoided as pre test probability for PE is low ff up with PCP early next week Current Inpatient Medications: Current Inpatient Medications Medications (Trade) Dose Ordered Sig/Darlin Route Start Time Stop Time Status Last Admin Dose Admin Sodium Chloride (Nss 1000ml) 1,000 ml @ 80 mls/hr [id number] IV 02/09/17 04:00 03/11/17 03:59 02/09/17 04:15 80 MLS/HR Acetaminophen (Tylenol Tab) 650 mg Q4H PRN PO 02/09/17 00:30 03/11/17 00:29 Al Hydrox/Mg Hydrox/Simethicone (Maalox Max Susp) 15 ml Q4H PRN PO 02/09/17 00:30 03/11/17 00:29 Magnesium Hydroxide (Milk Of Magnesia Susp) 30 ml Q12H PRN PO 02/09/17 00:30 03/11/17 00:29 Zolpidem Tartrate (Ambien Tab) 5 mg HSZ PRN PO 02/09/17 00:30 03/11/17 00:29 Ondansetron HCl (Zofran Inj) 4 mg Q6H PRN IV 02/09/17 00:30 03/11/17 00:29 Nitroglycerin (Nitrostat Tab) 0.4 mg UD PRN SL 02/09/17 00:30 03/11/17 00:29 Aspirin (Ecotrin Tab) 81 mg QAM PO 02/09/17 09:00 03/11/17 08:59 02/09/17 09:05 81 MG Polyethylene (Miralax Powder Packet) 17 gm DAILY PRN PO 02/09/17 00:30 03/11/17 00:29 Lorazepam (Ativan Tab) 0.5 mg Q6 PRN PO 02/09/17 00:30 03/11/17 00:29 Atorvastatin Calcium (Lipitor Tab) 10 mg DAILY PO 02/09/17 09:00 03/11/17 08:59 02/09/17 09:05 10 MG Multivitamins (Multivitamin Tab) 1 tab DAILY PO 02/09/17 09:00 03/11/17 08:59 02/09/17 09:05 1 TAB Metoprolol Tartrate (Lopressor Tab) 25 mg BID PO 02/09/17 09:00 03/11/17 08:59 02/09/17 05:08 25 MG Levothyroxine Sodium (Synthroid Tab) 100 mcg DAILYBB PO 02/09/17 06:00 03/11/17 06:59 02/09/17 05:08 100 MCG Miscellaneous 1 ea 1 ea PRN PRN N/A 02/09/17 01:30 02/09/18 01:29 Heparin Sodium/ Dextrose (Heparin 25,000 Unit/500ml D5W) 500 ml @ 28 mls/hr [id number] PRN IV 02/09/17 03:00 03/11/17 02:59 02/09/17 02:54 31 MLS/HR
[2017-02-09] MEDS ORDERED: CZR25 PO (16:56)
[2017-02-09] MEDS ORDERED: LPR25 PO (16:56)
--- NOTE | 2017-02-09 17:00 | Discharge Instructions ---
Discharge Instructions Date of Service Feb 09, 2017. Admission Reason for Admission: Anginal Chest Pain At Rest Discharge Discharge Diagnosis / Problem: Atypical Chest Pain Discharge Goals Goal(s): Diagnostic testing, Therapeutic intervention Activity Recommendations Activity Limitations: as noted below (no heavy exertion until re-evaluated by Primary Care Physician) . Instructions / Follow-Up Instructions / Follow-Up PLEASE REVIEW YOUR NEW MEDICATION LIST AND FOLLOW INSTRUCTIONS CAREFULLY. CALL PRIMARY CARE PHYSICIAN OR RETURN TO THE ER IMMEDIATELY IF WITH RECURRENCE OF SYMPTOMS. NO HEAVY LIFTING USING THE RIGHT ARM. FOLLOW UP WITH DR. THOMAS ON Wednesday02/15/17 AT 1:00PM. Current Hospital Diet Patient's current hospital diet: AHA Diet (Heart Healthy), Clear Liquid Diet Discharge Diet Recommended Diet: AHA Diet (Heart Healthy) Procedures Procedures Performed: STRESS TEST 02/09/17 Pending Studies Studies pending at discharge: yes List of pending studies: REPEAT THYROID FUNCTION TEST IN 1 WEEK Laboratory Results Lipid Panel Test 02/09/17 06:15 Range/Units Triglycerides Level 144 0-150 mg/dl Cholesterol Level 152 0-200 mg/dl HDL Cholesterol 47 mg/dl Cholesterol/HDL Ratio 3.2 LDL Cholesterol, Calculated 76 mg/dl Medical Emergencies . Who to Call and When: Medical Emergencies: If at any time you feel your situation is an emergency, please call 911 immediately. . Non-Emergent Contact Non-Emergency issues call your: Primary Care Provider . Past History Medical & Surgical History: (1) Hypothyroidism (2) DUSTY (acute kidney injury) (3) Hyperlipidemia (4) HTN (hypertension) (5) Toe fracture, left (6) big toe fracture (7) H/O: hysterectomy (8) FH: cholecystectomy . "Provider Documentation" section prepared by Jose Rubio. VTE Core Measure Inpt VTE Proph given/why not?: Unfractionated heparin SQ
--- NOTE | 2017-02-09 17:15 | Discharge Summary ---
Discharge Summary Date of Service Feb 09, 2017. Discharge Summary Admission Date: Feb 09, 2017 at 00:16 Discharge Date: Feb 09, 2017 Principal Diagnosis: Atypical Chest Pain - from Hypertensive Urgency? Secondary Diagnoses/Problems: Please refer to hospital course below. Procedures: Exercise Stress Test 02/09/[address] Heath Consultations: Cardiology Dr. Heath Pending Studies/Follow-Up: Please refer to hospital course below. Medication Reconciliation New Medications: Losartan Potassium (Losartan Potassium) 25 Mg Tab 1 TAB PO DAILY for 30 Days, #30 TABS 2 Refills Metoprolol Tartrate (Lopressor) 25 Mg Tab 25 MG PO BID for 30 Days, #60 TAB 2 Refills Continued Medications: Atorvastatin (Lipitor) 10 Mg Tab 10 MG PO DAILY Levothyroxine Sodium (Levothyroxine Sodium) 75 Mcg Tab 75 MCG PO DAILY, 3 Refills Multivitamin (Multivitamin) Tab 1 TAB PO DAILY Discontinued Medications: Losartan Potassium (Cozaar) 50 Mg Tab 50 MG PO DAILY Admission Information HPI (per Admitting provider): The patient is a 51 year old female who presents to the Emergency Room with complaints of nausea, shortness of breath, upper back, neck, bilateral shoulder and right arm discomfort with tingling for the past few hours. Patient reports left sided chest pain, appears to be anxious , C/O SOB , chest pain pain worse with laying flat. Similar experience on Wednesday, lasting 2 hours with resolution. Negative diaphoresis. She describes the pain as numbness and tingling, Patient has a family history of heart disease with a brother had a heart attack in his 30s and her mother and her diffuse. Patient donated a kidney few years ago. She had an cardiac catheterization in 2008 prior to donating her kidney that was normal per patient. Patient is obese. No complain of RAMIREZ . Patient denies fever , cough, congestion, leg pain or swelling, no complain of abdominal pain, no recent travel, denies tobacco use. Physical Exam (per Admitting): Physical Exam: General- oriented x 3 not in distress Head- atraumatic Eyes- EOMI, anicteric Neck- supple, no JVD no tenderness Lungs- clear to auscultation bilaterally Heart- normal rate, regular rhythm; no murmurs Abdomen- normal bowel sounds, soft, nontender Extremities- no pretibial edema, no calf tenderness Neuro- alert, oriented x 3 no gross focal deficits Skin- warm & dry Hospital Course (1) Anginal chest pain at rest (2) Hypothyroidism (3) DUSTY (acute kidney injury) (4) Hyperlipidemia (5) HTN (hypertension) (6) Elevated d-dimer 51 year old female with history of Hypertension, Dyslipidemia presenting with chest pain. (1) Atypical Chest Pain - from Hypertensive Urgency? pain radiation to jaw and arm risk factor; family hx of CAD , HTN , Hyperlipidemia - per patient, chest discomfort occurs when she is having posterior cervical neck pain radiating to the right arm -cardiac markers , EKG non ischemic s/p Exercise Stress Test by Dr. Heath: Negative cleared for discharged by Cardiology continue Metoprolol for better BP control chest pain has resolved at this time may need further work up for Cervicalgia (2) Hypothyroidism Chronic TSH elevated > 7 , T4 1.0 - repeat TSH/T4 in 1 week - continue L thyroxine (3) DUSTY (acute kidney injury) Resolved SOLITARY KIDNEY baseline cr 1.5 presented with Cr 1.7 given IV fluids, crea now 1.5 monitor (4) Hyperlipidemia Chronic LDL 76 HDL 47 Cont Lipitor (5) HTN (hypertension) BP elevated 192/84 on admission started on Lopressor 25 mg PO BID BP improved to systolic 130s - continue Lopressor 25mg BID and lower Losartan to 25mg po daily for now monitor BP (6) Elevated d-dimer - d dimer mildly elevated at 590 (normal <500) - Doppler of the Legs negative for DVT - Well's score for PE is Low no tachycardia, hypoxia, history of DVT - also, dyspnea and chest pain has resolved - has CKD, CT angio avoided as pre test probability for PE is low ff up with PCP early next week Total time spent on discharge = 35 minutes This includes examination of the patient, discharge planning, medication reconciliation, and communication with other providers. Discharge Instructions Discharge Instructions Date of Service Feb 09, 2017. Admission Reason for Admission: Anginal Chest Pain At Rest Discharge Discharge Diagnosis / Problem: Atypical Chest Pain Discharge Goals Goal(s): Diagnostic testing, Therapeutic intervention Activity Recommendations Activity Limitations: as noted below (no heavy exertion until re-evaluated by Primary Care Physician) . Instructions / Follow-Up Instructions / Follow-Up PLEASE REVIEW YOUR NEW MEDICATION LIST AND FOLLOW INSTRUCTIONS CAREFULLY. CALL PRIMARY CARE PHYSICIAN OR RETURN TO THE ER IMMEDIATELY IF WITH RECURRENCE OF SYMPTOMS. NO HEAVY LIFTING USING THE RIGHT ARM. FOLLOW UP WITH DR. THOMAS ON Wednesday02/15/17 AT 1:00PM. Current Hospital Diet Patient's current hospital diet: AHA Diet (Heart Healthy), Clear Liquid Diet Discharge Diet Recommended Diet: AHA Diet (Heart Healthy) Procedures Procedures Performed: STRESS TEST 02/09/17 Pending Studies Studies pending at discharge: yes List of pending studies: REPEAT THYROID FUNCTION TEST IN 1 WEEK Laboratory Results Lipid Panel Test 02/09/17 06:15 Range/Units Triglycerides Level 144 0-150 mg/dl Cholesterol Level 152 0-200 mg/dl HDL Cholesterol 47 mg/dl Cholesterol/HDL Ratio 3.2 LDL Cholesterol, Calculated 76 mg/dl Medical Emergencies . Who to Call and When: Medical Emergencies: If at any time you feel your situation is an emergency, please call 911 immediately. . Non-Emergent Contact Non-Emergency issues call your: Primary Care Provider . Past History Medical & Surgical History: (1) Hypothyroidism (2) DUSTY (acute kidney injury) (3) Hyperlipidemia (4) HTN (hypertension) (5) Toe fracture, left (6) big toe fracture (7) H/O: hysterectomy (8) FH: cholecystectomy . "Provider Documentation" section prepared by Jose Rubio. VTE Core Measure Inpt VTE Proph given/why not?: Unfractionated heparin SQ Problem Qualifiers (1) Hypothyroidism: Hypothyroidism type: unspecified Qualified Codes: E03.9 - Hypothyroidism, unspecified (2) Hyperlipidemia: Hyperlipidemia type: other hyperlipidemia Qualified Codes: E78.4 - Other hyperlipidemia (3) HTN (hypertension): Hypertension type: essential hypertension Qualified Codes: I10 - Essential ( primary) hypertension
[2017-02-09 17:29] VITALS: BP 138/92; PULSE 67; TEMP 36.7; O2SAT 96
== END 2017-02-09 17:36 | disposition home or self-care (01) ==
LOC: ENRESERVDT → ENRESERVTM → C.EDB 22:33 → CANBEDREQ 02-09 00:13 → C.MSICU 02-09 00:16
PROVIDERS: ADMIT Hospitalist; ATTEND Internal Medicine
DX: R07.9 Chest pain, unspecified (principal); E78.4 Other hyperlipidemia; E03.9 Hypothyroidism, unspecified; N17.9 Acute kidney failure, unspecified; I10 Essential (primary) hypertension; E78.5 Hyperlipidemia, unspecified; R79.1 Abnormal coagulation profile; Z83.3 Family history of diabetes mellitus; Z82.49 Family history of ischemic heart disease and other diseases of the circulatory system

== ENCOUNTER → 2017-12-09 | Outpatient (CLI) | payer BC ==
[~2017-12-09] MED LIST changes: +ATOR10TA82 PO; +CZR25 PO; +LEVO75TA5 PO; +LPR25 PO; -OXYC-57 PO; -SERT50TA PO
--- NOTE | 2017-12-09 14:30 | MAMMOGRAPHY REPORT ---
BILATERAL DIGITAL SCREENING MAMMOGRAM TOMOSYNTHESIS WITH CAD: 12/09/2017 TECHNIQUE: Breast tomosynthesis in addition to standard 2D mammography was performed. Current study was also evaluated with a Computer Aided Detection (CAD) system. COMPARISON: Comparison is made to exams dated: 12/02/2016 mammogram, 11/29/2015 mammogram, 11/27/2014 ma mmogram, 11/23/2013 mammogram, 05/29/2013 mammogram, and 11/23/2012 mammogram - [facility] nter. BREAST COMPOSITION: The tissue of both breasts is heterogeneously dense, which may obscure small mas ses. FINDINGS: No suspicious masses, calcifications, or areas of architectural distortion are noted in ei ther breast. There has been no significant interval change compared to prior exams. IMPRESSION: ACR BI-RADS CATEGORY 1: NEGATIVE There is no mammographic evidence of malignancy. A 1 year screening mammogram is recommended. The pa tient will receive written notification of the results. Approximately 10% of breast cancers are not detected with mammography. A negative mammographic report should not delay biopsy if a clinically suggestive mass is present. Linda Dinero M.D. /:12/09/2017 07:38:30 Alining Inspector: Stephy VICKERS(Emili)(Delaney), [facility] letter sent: Normal 1/2 BI-RADS Code: ACR BI-RADS Category 1: Negative
== END | disposition home or self-care (01) ==
LOC: C.MAMM 07:12
PROVIDERS: ATTEND Family Medicine
DX: Z12.31 Encounter for screening mammogram for malignant neoplasm of breast (principal)